=== PATIENT | female | born 1960 | race Native Hawaiian/Other Pacific Islander ===

== ENCOUNTER 2018-12-01 08:44 | Outpatient (CLI) | payer BC ==
[~2018-12-01 08:44] MED LIST: BISO5TAB2 PO; CALTRATE 600+D1 TAB OR; LEVO0.1224 PO; SIMV20TA2 PO
[2018-12-01 09:40] LABS: PLATELET COUNT 245 K/uL (152-353)
[2018-12-01 10:09] LABS: POTASSIUM 3.7 mmol/L (3.6-5.2)
== END 2018-12-01 21:04 | disposition home or self-care (01) ==
LOC: MAMMO 08:44
PROVIDERS: Physician Assistant
DX: Z12.31 Encounter for screening mammogram for malignant neoplasm of breast (principal); E03.9 Hypothyroidism, unspecified; I10 Essential (primary) hypertension; E78.00 Pure hypercholesterolemia, unspecified
CPT/HCPCS: 36415; 80053; 80061; 82306; 82607; 83036; 84439; 84443; 85027

== ENCOUNTER 2021-07-04 08:54 | Outpatient (CLI) | payer BC | END 2021-07-04 22:35 | disposition home or self-care (01) | LOC: MAMMO 08:54 | PROVIDERS: ATTEND Internal Medicine | DX: Z12.31 Encounter for screening mammogram for malignant neoplasm of breast (principal) ==

== ENCOUNTER 2021-07-19 08:54 | Outpatient (CLI) | payer BC | END 2021-07-19 19:16 | disposition home or self-care (01) | LOC: MAMMO 08:54 | PROVIDERS: ATTEND Internal Medicine | DX: R92.8 Other abnormal and inconclusive findings on diagnostic imaging of breast (principal) ==